=== PATIENT | female | born 1990 | race Caucasian/White ===

== ENCOUNTER 2016-08-19 15:47 | Emergency (ER) | payer BC ==
[~2016-08-19] VITALS: Ht 167.6 cm; Wt 78.0 kg
[2016-08-19 15:48] VITALS: BP 162/86; PULSE 92; RESP 20; TEMP 98.7; O2SAT 100
[2016-08-19] MEDS ORDERED: ABIL2TAB2 PO (16:02)
[2016-08-19] MEDS ORDERED: VENL100T PO (16:02)
[2016-08-19] MEDS ORDERED: ONDANSETRON ODT 4 MG TAB PO ONE (16:15)
--- NOTE | 2016-08-19 16:29 | PD ---
Data Data Last Documented VS Vital Signs Date Time Temp Pulse Resp B/P Pulse Ox O2 Delivery O2 Flow Rate FiO2 08/19/16 16:04 18 08/19/16 15:48 98.7 92 162/86 100 Room Air Orders Ondansetron Odt (Zofran Odt) (08/19/16 16:15) Electrocardiogram (08/19/16 ) MDM Supervised Visit with LIVIER: Yes Narrative Course The history, exam, and medical decision-making in the associated mid-level provider note were completed with my assistance. I reviewed and agree with the findings presented. I attest that I had a [id number] encounter with the patient on the same day, and personally performed and documented my assessment and findings in the medical record. *My assessment and Findings: Well 26 year-old woman with bizarre complaints of funny feelings in her head and phonophobia and photophobia as well as a variety of other complaints. She looks well. No evidence seemed dangerous. She does have some chest tightness we'll get an EKG. She did recently start Abilify. She's had the brains zaps, as she calls them, before. This may be some kind of migraine equivalent, more likely anxiety. Recommended supportive treatment. John Ramirez MD Aug 19, 2016 16:29
--- NOTE | 2016-08-19 16:33 | PD ---
HPI Chief Complaint: Medical Clearance Time Seen by Provider: 16:00 Travel History International Travel<30 days: No Contact w/Intl Traveler<30days: No Traveled to known affect area: No History of Present Illness HPI Patient's 26 year old female presenting to emergency for evaluation of nausea, vomiting, "brains out". Patient states these symptoms started at work at approximately 7:30 this morning, at that time she felt weak and tired. She does report increased stress in her daily life. She vomited once one hour prior to arrival. Patient states she is on Effexor and Abilify, she started the Abilify 3 weeks ago out of [facility] in [place]. She reports a history of brains out with the Effexor and if she misses a dose they get worse. Patient left work, she went home and rested. She denies any shortness of breath, chest pain, abdominal pain, headache. Patient does report a history of panic attacks, she states that the symptoms initially felt similar but she did not have the feeling of her heart racing. PFSH Past Medical History Anxiety: Yes Depression: Yes Respiratory: Yes (has inhaler, no asthma) ?: Not LMP: a week ago Social History Alcohol Use: No Tobacco Use: No Allergies-Medications (Allergen,Severity, Reaction): Coded Allergies: Doxycycline (Verified Allergy, Severe, fever rash, 08/19/16) Bactrim (Verified Allergy, Intermediate, itchy, 08/19/16) Cipro (Verified Allergy, Intermediate, itchy, 08/19/16) Reported Meds & Prescriptions Reported Meds & Active Scripts Active Reported Effexor (Venlafaxine HCl) 100 Mg Tab 150 Mg PO Q12H Abilify (Aripiprazole) 2 Mg Tab 5 Mg PO DAILY Review of Systems Except as stated in HPI: all other systems reviewed are Neg Eyes: Positive: Photophobia Gastrointestinal: Positive: Nausea, Vomiting Neurologic: Positive: Sensory Disturbance (brain zaps) Physical Exam Narrative GENERAL: Well-developed, well-nourished, alert female. Resting comfortably in no acute distress. SKIN: Focused skin assessment warm/dry. HEAD: Atraumatic. Normocephalic. EYES: Pupils equal and round. No scleral icterus. No injection or drainage. ENT: No nasal bleeding or discharge. Mucous membranes pink and moist. NECK: Trachea midline. No JVD. CARDIOVASCULAR: Regular rate and rhythm. No murmur appreciated. RESPIRATORY: No accessory muscle use. Clear to auscultation. Breath sounds equal bilaterally. GASTROINTESTINAL: Abdomen soft, non-tender, nondistended. Hepatic and splenic margins not palpable. MUSCULOSKELETAL: No obvious deformities. No clubbing. No cyanosis. No edema. NEUROLOGICAL: Awake and alert. No obvious cranial nerve deficits. Motor grossly within normal limits. Normal speech. PSYCHIATRIC: Appropriate mood and affect; insight and judgment normal. Data Data Last Documented VS Vital Signs Date Time Temp Pulse Resp B/P Pulse Ox O2 Delivery O2 Flow Rate FiO2 08/19/16 16:04 18 08/19/16 15:48 98.7 92 162/86 100 Room Air Orders Ondansetron Odt (Zofran Odt) (08/19/16 16:15) Electrocardiogram (08/19/16 ) [facility] Medical Decision Making Medical Screen Exam Complete: Yes Emergency Medical Condition: Yes Interpretation(s) Vital Signs Date Time Temp Pulse Resp B/P Pulse Ox O2 Delivery O2 Flow Rate FiO2 08/19/16 16:04 18 08/19/16 15:48 98.7 92 20 162/86 100 Room Air Differential Diagnosis Medication side effect versus panic disorder versus anxiety versus cardiac arrhythmia versus other Narrative Course Patient is a 26-year-old female presenting for evaluation of nausea, vomiting, photophobia, brain zaps. Patient appears well, her vital signs are stable. EKG shows sinus rhythm and sinus arrhythmia with a rate of 76. Patient be given Zofran by mouth with subsequent by mouth fluid challenge. Patient tolerated fluid challenge. Patient is encouraged to follow up with her primary doctor. She was encouraged to maintain adequate fluid intake, rest, avoid caffeinated products. She was encouraged to return to emergency department for any new or worsening symptoms. Patient verbalized understanding of instructions. Patient is stable for discharge. Diagnosis Primary Impression: Anxiety Referrals: Primary Care Physician Patient Instructions: Anxiety (ED), General Instructions Additional Instructions: Follow-up with her primary doctor Continue home medications as previously prescribed Return to emergency department for any new or worsening symptoms Med/Other Pt SpecificInfo: Prescription(s) given Scripts Ondansetron Odt (Zofran Odt)4 Mg Tab4 Mg SL Q6HR PRN (Nausea/Vomiting) 3 Days Ref 0 Prov:Richelle Flores 08/19/16 Disposition: 01 DISCHARGE HOME Condition: Stable Richelle Flores Aug 19, 2016 16:33
[2016-08-19] MEDS ORDERED: ZOFR4TAB3 SL (17:02)
--- NOTE | 2016-08-20 13:24 | EKG ---
Date Performed: 08/19/2016 Time Performed: 16:21:47 PTAGE: 26 years EKG: Sinus rhythm WITH SINUS ARRHYTHMIA WITH SHORT VT INTERVAL BORDERLINE ECG NO PREVIOUS TRACING DOCTOR: Bailey Barnes Interpretating Date/Time 08/20/2016 13:19:27
== END 2016-08-19 17:23 | disposition home or self-care (01) ==
LOC: NEPD 15:47
DX: F41.9 Anxiety disorder, unspecified (principal); R11.2 Nausea with vomiting, unspecified; R53.1 Weakness; R53.83 Other fatigue; R94.31 Abnormal electrocardiogram [ECG] [EKG]; Z86.59 Personal history of other mental and behavioral disorders
CPT/HCPCS: 93005